=== PATIENT | male | born 1970 | race Caucasian/White ===

== ENCOUNTER 2016-09-20 22:27 | Observation (INO) | payer SELFPAY ==
[2016-09-20] VITALS (8 sets, daily range): BP systolic 102–158; BP diastolic 65–92; PULSE 85–104; RESP 16–18; TEMP 100; O2SAT 93–97
[~2016-09-20] VITALS: Ht 180.3 cm; Wt 116.8 kg
[~2016-09-20 22:27] MED LIST: COLC1TAB7 PO; INDO50CA PO; LISI-360 PO
[2016-09-20] MEDS ORDERED: ASPIRIN 81 MG CHEW TAB PO ONE (22:45)
[2016-09-20] MEDS ORDERED: SODIUM CHLORIDE 0.9% FLUSH 5 ML FLUSH IVF PRN (22:45)
--- NOTE | 2016-09-20 22:46 | PD ---
HPI Chief Complaint: chest pain Time Seen by Provider: 22:41 Travel History International Travel<30 days: No Contact w/Intl Traveler<30days: No Traveled to known affect area: No History of Present Illness HPI 46-year-old male presents to the emergency department by private transportation for complaint of 3/10 retrosternal chest pain radiating into the back. Patient denies neck jaw shoulder arm or abdominal pain. Patient states he's had vague discomfort in his chest over the past 2-3 days. Patient states prior to arrival to the emergency department pain was 10 over 10 in intensity. Onset of symptoms approximately 45 minutes prior to arrival to the emergency department. Patient states he had a mild chill or sweat. No nausea vomiting or shortness of breath. Patient has history of hypertension but denies personal history of dyslipidemia diabetes tobaccoism or heart disease. Patient denies family history of premature onset heart disease but does have family history of hypertension. Patient has not been told of any issues with his aorta. Patient denies any personal history family history of clotting disorder and no recent long distance travel protracted bedrest or surgical procedure. Patient reports cough just since arriving to the emergency department. Patient does not report any skin rash lip tongue or throat swelling. Patient does take the Cipro for hypertension. [facility], [facility] Past Medical History Narrative Medical Hypertension negative stress test 2007 gouty arthritis kidney stones with lithotripsy vasectomy mediastinal tumor excision tracheostomy was reversal no tobacco use no family history OR nursing notes reviewed Heart Rhythm Problems: No Cancer: No Cardiac Catheterization: No Cardiovascular Problems: Yes (htn on meds but did not take this am) High Cholesterol: No Congestive Heart Failure: No Diabetes: No Diminished Hearing: No Gout: Yes Genitourinary: Yes (LITHOTRIPSY) Hepatitis: No Hiatal Hernia: No Hypertension: Yes Kidney Stones: Yes Immunizations Current: Yes Myocardial Infarction: No Thyroid Disease: No PNEUMOCCOCAL Vaccine (Year): 2 Past Surgical History Coronary Artery Bypass Graft: No Genitourinary Surgery: Yes (VASECTOMY, BILATERAL ESWL) Gynecologic Surgery: No Pacemaker: No Thoracic Surgery: Yes (TUMOR REMOVED FROM CHEST) Other Surgery: Yes (TRACH AND REVERSAL) Social History Alcohol Use: No Tobacco Use: No Substance Use: No Allergies-Medications (Allergen,Severity, Reaction): Coded Allergies: Contrast Media (Verified Allergy, Severe, Anaphylaxis, 10/16/15) Reported Meds & Prescriptions Reported Meds & Active Scripts Active Colcrys (Colchicine) 0.6 Mg Tab 0.6 Mg PO DIRECTED 1.2 mg PO x 1, then 0.6 mg 1 hour later x 1 Indocin (Indomethacin) 50 Mg Cap 50 Mg PO TID One by mouth every 8 hours; discontinue as soon as relief Lisinopril 10 mg (Lisinopril) 10 Mg Tab 10 Mg PO DAILY Review of Systems Except as stated in HPI: all other systems reviewed are Neg General / Constitutional: Positive: Chills, No: Fever HENT: No: Congestion Cardiovascular: Positive: Chest Pain or Discomfort, No: Syncope Respiratory: Positive: Cough (just since arriving to the ED) Gastrointestinal: No: Nausea, Vomiting, Diarrhea, Abdominal Pain Genitourinary: No: Urgency, Frequency, Dysuria Musculoskeletal: No: Myalgias, Arthralgias Skin: No Rash Neurologic: No: Weakness Psychiatric: No: Anxiety Hematologic/Lymphatic: No: Lymph Node Enlargement Physical Exam Narrative GENERAL: Well-developed well-nourished male in no acute distress no respiratory distress SKIN: Warm and dry. HEAD: Normocephalic. EYES: No scleral icterus. No injection or drainage. NECK: Supple, trachea midline. No JVD or lymphadenopathy. CARDIOVASCULAR: Regular rate and rhythm without murmurs, gallops, or rubs. RESPIRATORY: Breath sounds equal bilaterally. No accessory muscle use. GASTROINTESTINAL: Abdomen soft, non-tender, nondistended. MUSCULOSKELETAL: No cyanosis, or edema. Radial and dorsalis pedis pulses 2+ to palpation bilaterally. BACK: Nontender without obvious deformity. No CVA tenderness. Data Data Last Documented VS Vital Signs Date Time Temp Pulse Resp B/P Pulse Ox O2 Delivery O2 Flow Rate FiO2 09/20/16 23:10 16 09/20/16 22:30 100.0 88 158/92 96 Orders Electrocardiogram (09/20/16 22:41) Ckmb (Isoenzyme) Profile (09/20/16 22:41) Complete Blood Count With Diff (09/20/16 22:41) Comprehensive Metabolic Panel (09/20/16 22:41) Magnesium (Mg) (09/20/16 22:41) Prothrombin Time / Inr (Pt) (09/20/16 22:41) Act Partial Throm Time (Ptt) (09/20/16 22:41) Troponin I (09/20/16 22:41) Lipase (09/20/16 22:41) Chest, Single Ap (09/20/16 22:41) Ecg Monitoring (09/20/16 22:41) Bilateral Bp Monitoring (09/20/16 22:41) Iv Access Insert/Monitor (09/20/16 22:41) Oximetry (09/20/16 22:41) Oxygen Administration (09/20/16 22:41) Aspirin Chew (Aspirin Chew) (09/20/16 22:45) Sodium Chloride 0.9% Flush (Ns Flush) (09/20/16 22:45) Nitroglycerin Sl (Nitrostat Sl) (09/20/16 22:45) Sodium Chlor 0.9% 1000 Ml Inj (Ns 1000 M (09/20/16 22:45) Alcohol (Ethanol) (09/20/16 22:46) CKMB (09/20/16 22:35) CKMB% (09/20/16 22:35) Labs Laboratory Tests Test 09/20/16 22:35 White Blood Count 10.5 TH/MM3 Red Blood Count 5.61 MIL/MM3 Hemoglobin 15.6 GM/DL Hematocrit 47.8 % Mean Corpuscular Volume 85.2 FL Mean Corpuscular Hemoglobin 27.7 PG Mean Corpuscular Hemoglobin 32.6 % Concent Red Cell Distribution Width 13.0 % Platelet Count 231 TH/MM3 Mean Platelet Volume 9.4 FL Neutrophils (%) (Auto) 54.0 % Lymphocytes (%) (Auto) 33.2 % Monocytes (%) (Auto) 9.0 % Eosinophils (%) (Auto) 3.3 % Basophils (%) (Auto) 0.5 % Neutrophils # (Auto) 5.7 TH/MM3 Lymphocytes # (Auto) 3.5 TH/MM3 Monocytes # (Auto) 0.9 TH/MM3 Eosinophils # (Auto) 0.3 TH/MM3 Basophils # (Auto) 0.1 TH/MM3 CBC Comment DIFF FINAL Differential Comment Prothrombin Time 9.9 SEC Prothromb Time International 0.9 RATIO Ratio Activated Partial 26.8 SEC Thromboplast Time Sodium Level 141 MEQ/L Potassium Level 3.9 MEQ/L Chloride Level 104 MEQ/L Carbon Dioxide Level 28.2 MEQ/L Anion Gap 9 MEQ/L Blood Urea Nitrogen 18 MG/DL Creatinine 1.20 MG/DL Estimat Glomerular Filtration 65 ML/MIN Rate Random Glucose 141 MG/DL Calcium Level 8.5 MG/DL Magnesium Level 2.1 MG/DL Total Bilirubin 0.3 MG/DL Aspartate Amino Transf 18 U/L (AST/SGOT) Alanine Aminotransferase 35 U/L (ALT/SGPT) Alkaline Phosphatase 126 U/L Total Creatine Kinase 339 U/L Creatine Kinase MB 1.7 NG/ML Creatine Kinase MB % 0.5 % Troponin I LESS THAN 0.02 NG/ML Total Protein 7.3 GM/DL Albumin 3.6 GM/DL Lipase 103 U/L Ethyl Alcohol Level LESS THAN 3 MG/DL MDM Medical Decision Making Medical Screen Exam Complete: Yes Emergency Medical Condition: Yes Medical Record Reviewed: Yes Interpretation(s) EKG normal sinus rhythm rate [address] elevation or injury pattern change artifact is present in lead 3 troponin I: less than 0.02, not elevated; ck: 339, elevated but ckmb: 0.5% not elevated Last Impressions Chest X-Ray 09/20/16 2241 Signed Impressions: Service Date/Time: Tuesday, September 20, 2016 22:48 - CONCLUSION: No evidence of acute cardiopulmonary disease. Bridger Copeland MD CBC & BMP Diagram 09/20/16 22:35 Differential Diagnosis Chest pain, ACS, OR, atypical chest pain, esophageal spasm, PE, biliary colic, peptic ulcer disease, pancreatitis, viral syndrome, pneumonia Narrative Course Patient placed on monitor and storage bin tender IV access obtained specimens collected and sent for resulting patient administered aspirin and ordered for sublingual nitroglycerin patient denies medication use for erectile dysfunction At 11:35 PM after 2 sublingual nitroglycerin tablets 0.4 mg discomfort/pain is 0 /10 in intensity. chest pain CAD risks: male, age 46, hypertension; no DM, no dyslipidemia, no tobacco, no FH CAD. Plan for obs to [facility] per protocol Physician Communication Physician Communication discussed with Dr Arndt for [facility] protocol Diagnosis Primary Impression: Chest pain Qualified Code: R07.2 - Precordial pain Admitting Information Admitting Physician Requests: Viridiana Anne MD Sep 20, 2016 22:46
[2016-09-20] MEDS: SODIUM CHLOR 0.9% 1000 ML INJ 1,000 ML IV SCH (22:53)
[2016-09-20] MEDS: NITROGLYCERIN 0.4 MG SL 25 TABS/BTL SL SCH ×2 (22:55→23:09)
--- NOTE | 2016-09-20 22:59 | RADHPO ---
EXAM DATE/TIME: 09/20/2016 22:48 [facility] COMPARISON: CHEST PA & LAT, January 01, 2015, 9:01. INDICATIONS : Chest pains MEDICAL HISTORY : Hyperparathyroidism. SURGICAL HISTORY : None. ENCOUNTER: Initial ACUITY: 1 day PAIN SCORE: 5/10 LOCATION: Left chest FINDINGS: A single view of the chest demonstrates the lungs to be symmetrically aerated without evidence of mas s, infiltrate or effusion. The cardiomediastinal contours are unremarkable. Osseous structures are intact. CONCLUSION: No evidence of acute cardiopulmonary disease. Bridger Copeland MD on September 20, 2016 at 22:56 Board Certified Radiologist. This report was verified electronically.
[2016-09-20 23:12] LABS: AUTOMATED NEUTROPHIL # 5.7 TH/MM3 (1.8-7.7); BASOPHIL # 0.1 TH/MM3 (0-0.2); BASOPHIL % 0.5 % (0.0-2.0); EOSINOPHIL # 0.3 TH/MM3 (0-0.4); EOSINOPHIL % 3.3 % (0.0-4.0); HEMATOCRIT 47.8 % (39.0-51.0); HEMO FLAGS DIFF FINAL; LYMPH % 33.2 % (9.0-44.0); LYMPHOCYTE # 3.5 TH/MM3 (1.0-4.8); MEAN CELL VOLUME 85.2 FL (80.0-100.0); MEAN CORPUSCULAR HEMOGLOBIN 27.7 PG (27.0-34.0); MEAN CORPUSCULAR HGB CONC 32.6 % (32.0-36.0); PLATELET COUNT 231 TH/MM3 (150-450); RED BLOOD COUNT 5.61 MIL/MM3 (4.50-5.90); WHITE BLOOD COUNT 10.5 TH/MM3 (4.0-11.0)
[2016-09-20 23:20] LABS: CHLORIDE 104 MEQ/L (98-107); POTASSIUM 3.9 MEQ/L (3.5-5.1); SODIUM (NA) 141 MEQ/L (136-145)
[2016-09-20 23:24] LABS: ANION GAP 9 MEQ/L (5-15); BICARBONATE 28.2 MEQ/L (21.0-32.0); BLOOD UREA NITROGEN 18 MG/DL (7-18); MAGNESIUM 2.1 MG/DL (1.5-2.5)
[2016-09-20 23:25] LABS: APTT (PATIENT) 26.8 SEC (24.3-30.1); INTERNATIONAL NORMALIZED RATIO 0.9 RATIO; PROTHROMBIN TIME - PATIENT 9.9 SEC (9.8-11.6)
[2016-09-20 23:27] LABS: ALT (GPT) 35 U/L (12-78); AST (GOT) 18 U/L (15-37); GLOMERULAR FILTRATION RATE 65 ML/MIN (>89)
[2016-09-20 23:28] LABS: TOTAL BILIRUBIN ADULT 0.3 MG/DL (0.2-1.0)
[2016-09-20 23:29] LABS: CREATINE KINASE 339 U/L (39-308)
[2016-09-20 23:30] LABS: ALKALINE PHOSPHATASE 126 U/L (45-117)
[2016-09-20 23:42] LABS: CKMB 1.7 NG/ML (0.5-3.6)
[2016-09-21] VITALS (9 sets, daily range): BP systolic 112–142; BP diastolic 63–102; PULSE 73–85; RESP 16–20; TEMP 95.3–96.2; O2SAT 93–99
[2016-09-21] MEDS ORDERED: SODIUM CHLORIDE 0.9% FLUSH 5 ML FLUSH IVF PRN ×2 (00:30)
[2016-09-21] MEDS ORDERED: LISI10TA3 PO (01:08)
[2016-09-21 02:39] LABS: CREATINE KINASE 281 U/L (39-308)
[2016-09-21 02:51] LABS: CKMB 1.8 NG/ML (0.5-3.6)
[2016-09-21 05:00] LABS: CREATINE KINASE 260 U/L (39-308)
[2016-09-21 05:12] LABS: CKMB 1.6 NG/ML (0.5-3.6)
[2016-09-21] MEDS ORDERED: NITROGLYCERIN 0.4 MG SL 25 TABS/BTL SL PRN (08:45)
[2016-09-21] MEDS ORDERED: ACETAMINOPHEN/HYDROcodone 325 MG/7.5 MG TAB PO PRN (08:45)
[2016-09-21] MEDS: SODIUM CHLOR 0.9% 1000 ML INJ 1,000 ML IV SCH (08:45)
[2016-09-21] MEDS ORDERED: MORPHINE SULFATE 4 MG/ML INJ IV PRN (08:45)
[2016-09-21] MEDS ORDERED: ONDANSETRON HCL 4 MG/2 ML VIAL IV PRN (08:45)
[2016-09-21] MEDS ORDERED: ACETAMINOPHEN 500 MG CPLT PO PRN (08:45)
--- NOTE | 2016-09-21 08:49 | HHI.HP ---
cc: Eda Fishman MD [facility] Service [facility] Primary Care Physician Eda Fishman MD Admission Diagnosis chest pain Diagnoses: (1) Chest pain Diagnosis: Principal Chief Complaint: chest pain Travel History International Travel<30 Days: No Contact w/Intl Traveler <30 Da: No Traveled to Known Affected Are: No History of Present Illness 46-year-old male with history of hypertension, gout, kidney stones, and previous mediastinal tumors presents with complaint of chest pain. Patient admits to sharp retrosternal chest pain which started at 10 PM last night and radiated to the back and both sides of the anterior chest. Pain occurred after taking 2 potassium pills and drinking a glass of wine. He states pain lasted until he came here which was about 15 minutes and was constant during that time. He states the pain was already subsiding prior to receiving 2 nitroglycerin in the ED, and he denies immediate relief with this medication. The patient does state for the past week he has had left-sided chest discomfort a couple of episodes per day lasting minutes at a time and describes the pain as "shooting". He additionally admits to sharp "burning" epigastric pain for the past month. States it would occur spontaneously as well as with drinking or eating. Patient does get heartburn but only occasionally. He states he has had shortness of breath over the past week. He states he had mild dizziness this past week which has resolved. 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 He states he had diaphoresis last night which lasted only for a second, but he denies any numbness or tingling in the upper extremities. He admits to some left-sided neck pain but denies any pain in the jaws or arms and states the pain may have been from the way he was positioned. He denies any fevers, cold or cough symptoms recently; states he has a sore throat this morning which may be due to not drinking anything while here. Denies any chest pain or abdominal pain currently. Denies any nausea, vomiting, diarrhea, or constipation. Patient admits to swelling in his ankles but attributes it to work and also states he gets cramping in his calf muscles for which he is taking OTC potassium. He denies any history of DVT or pulmonary embolus, recent sedentary travel, leg immobilization, recent hospitalization, trauma or surgery in the last 12 weeks, or hemoptysis. May have had a stress test in 2007 although patient is unsure. He denies any history of diabetes mellitus, HLD, or CAD. Review of Systems Constitutional: COMPLAINS OF: Diaphoretic episodes, Dizziness (this past week; now resolved), DENIES: Fever Eyes: DENIES: Blurred vision Ears, nose, mouth, throat: COMPLAINS OF: Throat pain, DENIES: Ear Pain, Running Nose Respiratory: COMPLAINS OF: Shortness of breath, DENIES: Cough Cardiovascular: COMPLAINS OF: Chest pain, Lower Extremity Edema (ankles) Gastrointestinal: COMPLAINS OF: Abdominal pain, DENIES: Constipation, Diarrhea Genitourinary: DENIES: Dysuria Musculoskeletal: COMPLAINS OF: Back pain, Neck pain Integumentary: DENIES: Rash Neurologic: DENIES: Headache, Paresthesias Past Family Social History Past Medical History Hypertension Gout Kidney stones Left knee pain L-spine CT 08/17/15 with spondylolysis L5 bilaterally with grade 1 anterolisthesis; neural foramina compromise right L5-S1 impinging on exiting nerve roots on right due to asymmetrical bulging disc and small area of disc protrusion. Patient states he had back pain for 3 months at that time but his back is fine now. 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 Apparently had a tracheostomy related to this. Past Surgical History Lithotripsy Vasectomy Tracheostomy Reported Medications Lisinopril 10 Mg Tab 10 Mg PO DAILY Allergies: Coded Allergies: Contrast Media (Verified Allergy, Severe, Anaphylaxis, 10/16/15) Family History Mother: Hypertension. No history of CAD. Patient does not have any biological siblings. He does not know his father's history. Social History Patient denies any history of cigarette smoking. Patient drinks a glass of wine once in a while. Denies any history of illicit drug use. Physical Exam Vital Signs Vital Signs Date Time Temp Pulse Resp B/P Pulse Ox O2 Delivery O2 Flow Rate FiO2 09/21/16 04:15 96.2 73 20 128/89 99 09/21/16 04:00 96.2 81 20 139/90 96 09/21/16 02:27 78 09/21/16 01:39 98 Nasal Cannula 2.00 09/21/16 01:30 96.2 73 20 128/89 99 09/21/16 01:20 73 16 112/65 97 Nasal Cannula 2 09/21/16 00:35 99 Nasal Cannula 2 09/21/16 00:25 82 16 112/63 97 Nasal Cannula 2 09/20/16 23:55 86 16 115/76 97 Nasal Cannula 2 09/20/16 23:35 85 18 102/65 97 106/67 09/20/16 23:30 16 96 Room Air 09/20/16 23:30 85 16 106/67 97 Room Air 09/20/16 23:30 96 Room Air 09/20/16 23:25 87 16 120/65 95 Room Air 09/20/16 23:15 90 18 119/72 93 Room Air 09/20/16 23:10 16 09/20/16 23:05 100 18 131/72 95 Room Air 09/20/16 22:55 104 18 136/88 95 Room Air 09/20/16 22:30 104 18 96 09/20/16 22:30 100.0 88 16 158/92 96 Physical Exam GENERAL: This is a well-nourished, well-developed patient, in no apparent distress. SKIN: No rashes, ecchymoses or lesions. Warm and dry. HEAD: Atraumatic. Normocephalic. EYES: No scleral icterus. No injection or drainage. ENT: MMM. NECK: Trachea midline. No tenderness over B/L paracervical muscles. No obvious carotid bruits bilaterally. CARDIOVASCULAR: Regular rate and rhythm without murmurs, gallops, or rubs. RESPIRATORY: Clear to auscultation. Breath sounds equal bilaterally. No wheezes , rales, or rhonchi. GASTROINTESTINAL: Abdomen soft, non-tender, nondistended. No hepatomegaly, or palpable masses. No guarding. Negative Dominguez's test. MUSCULOSKELETAL: Tender over bilateral calves, but patient states this is chronic. No lower extremity edema bilaterally. 2+ DP pulses bilaterally. NEUROLOGICAL: Awake and alert. Motor grossly within normal limits. Normal speech. Laboratory Laboratory Tests Test 09/20/16 09/21/16 09/21/16 22:35 02:00 04:30 White Blood Count 10.5 Red Blood Count 5.61 Hemoglobin 15.6 Hematocrit 47.8 Mean Corpuscular Volume 85.2 Mean Corpuscular Hemoglobin 27.7 Mean Corpuscular Hemoglobin 32.6 Concent Red Cell Distribution Width 13.0 Platelet Count 231 Mean Platelet Volume 9.4 Neutrophils (%) (Auto) 54.0 Lymphocytes (%) (Auto) 33.2 Monocytes (%) (Auto) 9.0 Eosinophils (%) (Auto) 3.3 Basophils (%) (Auto) 0.5 Neutrophils # (Auto) 5.7 Lymphocytes # (Auto) 3.5 Monocytes # (Auto) 0.9 Eosinophils # (Auto) 0.3 Basophils # (Auto) 0.1 CBC Comment DIFF FINAL Differential Comment Prothrombin Time 9.9 Prothromb Time International 0.9 Ratio Activated Partial 26.8 Thromboplast Time Sodium Level 141 Potassium Level 3.9 Chloride Level 104 Carbon Dioxide Level 28.2 Anion Gap 9 Blood Urea Nitrogen 18 Creatinine 1.20 Estimat Glomerular Filtration 65 Rate Random Glucose 141 Calcium Level 8.5 Magnesium Level 2.1 Total Bilirubin 0.3 Aspartate Amino Transf 18 (AST/SGOT) Alanine Aminotransferase 35 (ALT/SGPT) Alkaline Phosphatase 126 Total Creatine Kinase 339 281 260 Creatine Kinase MB 1.7 1.8 1.6 Creatine Kinase MB % 0.5 Troponin I LESS THAN 0.02 LESS THAN 0.02 LESS THAN 0.02 Total Protein 7.3 Albumin 3.6 Lipase 103 Ethyl Alcohol Level LESS THAN 3 Result Diagram: 09/20/16223409/20/162234 Imaging Last Impressions Chest X-Ray 09/20/162240 Signed Impressions: Service Date/Time: Tuesday, September 20, 2016 22:48 - CONCLUSION: No evidence of acute cardiopulmonary disease. Bridger Copeland MD Assessment and Plan Assessment and Plan 46-year-old male with: Chest pain: Sharp retrosternal pain radiating to the back and both sides of anterior chest lasting 15 minutes last night, but patient has had additional episodes of left-sided chest discomfort and shortness of breath this past week. Pain currently resolved. Troponin 3 less than 0.02. CK-MB normal 3. Chest x-ray personally reviewed without acute abnormality. EKGs 3 personally interpreted with NSR and no ischemic abnormalities. EKG #1 has some isolated T- wave inversion in lead 3 but this may be abnormal due to the altered baseline. -Patient received 162 mg of aspirin at 2252 hours. -Nitro/Salix/morphine prn pain -Although patient has had previous back issues he currently states his back is fine. He c/o of some left knee issues, but the treadmill test was explained to the patient and he feels he can walk successfully on it without issue. ETT will be ordered. Nurse to wrap patient's left knee with CAMPOS prior to testing. Patient was informed if he is unable to complete the test we will have to do alternate testing (nuclear). ETT ordered. Epigastric pain: x 1 month. Describes as burning. No abdominal pain on exam. CBC unremarkable. Lipase is normal. Alkaline phosphatase mildly elevated, but AST and ALT normal. Patient has a history of occasional heartburn. Patient does drink wine occasionally and had some last night. Pain is likely GERD related. -Protonix 40 po ordered now. -Maalox prn -Outpatient follow up with GI HTN: Continue home Lisinopril Leg cramps: Patient has been taking jwup-avr-paeogrd potassium supplementation due to leg cramps. He does have bilateral calf pain on exam but there is no swelling evident and the patient's Wells score is -1 with a PERC score of 0 making DVT unlikely. K+ is normal. -Patient advised to discuss any [id number] supplementation with Dr. Fishman his PCP. -He is advised he can obtain adequate potassium through regular diet. -Hydration advised. DVT prophylaxis: early ambulation ETT was reviewed by Dr. Dickey [facility] wheel aligner who states it is normal. When I went back to speak with the patient he stated he started to develop mild epigastric pain again, but there is no pain on exam and he states he may just be hungry. Discharge disposition: Home in fair condition. Activity: Regular Diet: Patient advised against using alcohol as it causes GERD. Heart healthy diet advised. Medications: Protonix 20 mg daily. Patient advised he can take Tums, Maalox, or Pepcid Complete OTC to alleviate acute symptoms. Follow up: PCP Dr. Eda Fishman; GI. Discussed Condition With patient Problem Qualifiers (1) Chest pain: Qualified Code: R07.2 - Precordial pain Bree Castellanos Sep 21, 2016 08:48
[2016-09-21] MEDS ORDERED: SODIUM CHLORIDE 0.9% FLUSH 5 ML FLUSH IVF SCH ×2 (09:00)
[2016-09-21] MEDS ORDERED: PANTOPRAZOLE SOD 40 MG DELAYED RELEASE TAB PO SCH (09:00)
[2016-09-21] MEDS ORDERED: LISINOPRIL 10 MG TAB PO SCH (09:00)
--- NOTE | 2016-09-21 09:33 | EKG ---
Date Performed: 09/20/2016 Time Performed: 22:33:14 PTAGE: 46 years EKG: Sinus rhythm . Normal ECG PREVIOUS TRACING : 02/10/2013 19.10 No significant change from previous tracing noted. DOCTOR: Dg Schmitt Interpretating Date/Time 09/21/2016 09:31:49
[2016-09-21] MEDS ORDERED: PANT20 PO (11:23)
--- NOTE | 2016-09-21 11:25 | HHI.DCPOC ---
Discharge Care Plan Diagnosis: (1) Chest pain (2) Epigastric pain (3) Leg cramps Your Health Problems Are: Chest Pain Goals to Promote Your Health * To prevent worsening of your condition and complications * To maintain your health at the optimal level Directions to Meet Your Goals Take your medications as prescribed Follow your dietary instruction Follow activity as directed Keep your appointments as scheduled Take your immunizations and boosters as scheduled If your symptoms worsen call your PCP, if no PCP go to Urgent Care Center or Emergency Room Smoking is Dangerous to Your Health. Avoid second hand smoke Call the 24-hour hour crisis hotline for domestic abuse at Bree Castellanos Sep 21, 2016 11:24
[2016-09-21] MEDS ORDERED: ALUMINUM/MAGNESIUM/SIMETH 30 ML CUP PO PRN (11:30)
--- NOTE | 2016-09-21 13:43 | TR ---
Date Performed: 09/21/2016 Time Performed: 09:03:25 DOCTOR: Golden Dickey DRUG LIST: CLINICAL HISTORY: CHEST PAIN REASON FOR TEST: REASON FOR ENDING: OBSERVATION: CONCLUSION: Patient tolerated MARGARITA protocol with Total Exercise Time=9:05 Maximum PN=198 % Max HR Achieved=93.0% Maximum ZC=256/80. Testing stopped secondary to goal achieved and normal exercise f atigue. Patient experienced tingling in both hands up to mid forearms during early exercise which res olved; not present during peak exercise. No chest pain. HR and BP appropriate response to exercise an d recovered appropriately. No arrhythmias noted. COMMENTS: Patient exercised using the Margarita protocol. No electrocardiographic changes were seen to suggest ischemia. Hemodynamic response to exercise was normal. No significant arrhythmia was prese nt.
--- NOTE | 2016-09-22 09:14 | EKG ---
Date Performed: 09/21/2016 Time Performed: 01:31:24 PTAGE: 46 years EKG: Sinus rhythm Normal ECG PREVIOUS TRACING : 02/10/2013 19.10 Since previous tracing, no significant change noted DOCTOR: Golden Dickey Interpretating Date/Time 09/22/2016 09:13:20
--- NOTE | 2016-09-22 09:16 | EKG ---
Date Performed: 09/21/2016 Time Performed: 04:40:10 PTAGE: 46 years EKG: Sinus rhythm Normal ECG PREVIOUS TRACING : 09/21/2016 01.31 Since previous tracing, no significant change noted DOCTOR: Golden Dickey Interpretating Date/Time 09/22/2016 09:14:22
--- NOTE | 2016-09-28 13:10 | EKG ---
Date Performed: 09/21/2016 Time Performed: 04:40:10 PTAGE: 46 years EKG: Sinus rhythm Normal ECG PREVIOUS TRACING : 09/21/2016 01.31 Since previous tracing, no significant change noted DOCTOR: Golden Dickey Interpretating Date/Time 09/28/2016 13:09:27
--- NOTE | 2016-09-28 13:10 | EKG ---
Date Performed: 09/21/2016 Time Performed: 01:31:24 PTAGE: 46 years EKG: Sinus rhythm Normal ECG PREVIOUS TRACING : 02/10/2013 19.10 Since previous tracing, no significant change noted DOCTOR: Golden Dickey Interpretating Date/Time 09/28/2016 13:09:36
[2016-10-30] MEDS ORDERED: LISI10TA3 PO (15:23)
[2017-01-05] MEDS ORDERED: LISI10TA3 PO (14:23)
[2017-01-12] MEDS ORDERED: LISI10TA3 PO (11:20)
== END 2016-09-21 12:35 | disposition home or self-care (01) ==
LOC: PHED 22:27 → PHEDA 09-21 00:26 → PH3A 09-21 01:25
PROVIDERS: ADMIT Hospitalist; ATTEND Hospitalist
DX: R07.2 Precordial pain (principal); R68.83 Chills (without fever); I10 Essential (primary) hypertension; R05 Cough; M10.9 Gout, unspecified; R61 Generalized hyperhidrosis; M54.2 Cervicalgia; R06.02 Shortness of breath; R25.2 Cramp and spasm
CPT/HCPCS: 71010; 80053; 80320; 82550; 82552; 83690; 83735; 84484; 85025; 85610; 85730; 93005; 93017; 96360; 96361; 99285; G0378; J7030

== ENCOUNTER 2016-10-08 19:29 | Emergency (ER) | payer SELFPAY ==
[~2016-10-08] VITALS: Ht 180.3 cm; Wt 118.0 kg
[~2016-10-08 19:29] MED LIST changes: -COLC1TAB7 PO; -INDO50CA PO; -LISI-360 PO; +LISI10TA3 PO; +PANT20 PO
[2016-10-08 19:43] VITALS: BP 133/87; PULSE 87; RESP 20; TEMP 98.7; O2SAT 97
[2016-10-08] MEDS ORDERED: ONDANSETRON ODT 4 MG TAB PO ONE (20:30)
[2016-10-08] MEDS ORDERED: KETOROLAC TROMETHAMINE 60 MG/2 ML (IM) VIAL IM ONE (20:30)
--- NOTE | 2016-10-08 21:14 | PD ---
HPI Chief Complaint: Injury Time Seen by Provider: 20:18 Travel History International Travel<30 days: No Contact w/Intl Traveler<30days: No Traveled to known affect area: No History of Present Illness HPI Patient comes in complaining of left leg pain going from his knee to his ankle. Patient states he has chronic issue with his knee, ankle, and low back but has not seen a primary care doctor currently for this. Patient states he has a history of gout but this does not feel similar. Patient states when he woke this morning he felt his left lower extremity was more swollen than normal. Patient reports that about a week ago he misstepped on a ladder, but he denies any direct trauma to his left lower extremity. Denies any numbness or tingling. Patient has pain is aching burning sensation that is worse with palpation and walking. PFSH Past Medical History Asthma: No Blood Disorders: No Heart Rhythm Problems: No Cancer: No Cardiac Catheterization: No Cardiovascular Problems: Yes High Cholesterol: No Chest Pain: Yes Congestive Heart Failure: No COPD: No Diabetes: No Diminished Hearing: No Endocrine: No Gout: Yes Genitourinary: Yes (LITHOTRIPSY) Hepatitis: No Hiatal Hernia: No Hypertension: Yes Immune Disorder: No Kidney Stones: Yes Medical other: Yes ( SARCARDOSIS ) Musculoskeletal: Yes (MUSCLE NIGHT CRAMPS) Neurologic: Yes Psychiatric: No Reproductive: No Respiratory: Yes (SNORING) Immunizations Current: Yes Myocardial Infarction: No Sleep Apnea: No Thyroid Disease: No Tetanus Vaccination: < 5 Years Influenza Vaccination: No PNEUMOCCOCAL Vaccine (Year): 2 Past Surgical History Coronary Artery Bypass Graft: No Genitourinary Surgery: Yes (VASECTOMY, BILATERAL ESWL) Gynecologic Surgery: No Pacemaker: No Thoracic Surgery: Yes (TUMOR REMOVED FROM CHEST) Other Surgery: Yes (TRACH AND REVERSAL) Social History Alcohol Use: Yes (OCC WINE) Tobacco Use: No Substance Use: No Allergies-Medications (Allergen,Severity, Reaction): Coded Allergies: Contrast Media (Verified Allergy, Severe, Anaphylaxis, 10/08/16) Reported Meds & Prescriptions Reported Meds & Active Scripts Active Indomethacin 50 Mg Cap 50 Mg PO Q8HR PRN Take with food, milk, or antacids to decrease stomach adverse effects. Protonix (Pantoprazole Sodium) 20 Mg Tab 20 Mg PO DAILY Reported Lisinopril 10 Mg Tab 10 Mg PO DAILY Review of Systems Except as stated in HPI: all other systems reviewed are Neg Physical Exam Narrative GENERAL: Well-developed, overly nourished, in no acute distress, and non-ill appearing. SKIN: Warm and dry. HEAD: Atraumatic. Normocephalic. EYES: Pupils equal and round. EOMI. No scleral icterus. No injection or drainage. ENT: No nasal bleeding or discharge. Mucous membranes pink and moist. NECK: Trachea midline. Supple. No nuclear rigidity. CARDIOVASCULAR: Dorsal pulses 2+ intact bilaterally. Capillary refill is 2 seconds. Trace pedal edema noted left lower extremity compared to right. RESPIRATORY: No accessory muscle use. No respiratory distress. MUSCULOSKELETAL: No obvious deformities. No clubbing. No cyanosis. No edema. Decreased range of motion of left leg secondary to pain. Patient reports tenderness to palpation from his left ankle to his left knee. Positive Homans sign on left. Knee: Negative patellar apprehension, varus and valgus maneuvers , anterior draw test, and Mayco test. Pulses equal BL distal to injury. Capillary refill less than 2 seconds distal to injury and equal BL. FROM distal to injury and equal BL. Strength distal to injury equal BL. NV intact distal to injury. Dorsal pulses equal BL. Ankle: Neagative anterior draw and Barnett test. Negative Fredy's sign. No laxity noted with passive inversion and eversion of BL ankles. Negative squeeze test. Pulses equal BL distal to injury. Capillary refill less than 2 seconds distal to injury and equal BL. Sensation equal BL 1st web space. FROM of toes distal to injury and equal BL. NV intact distal to injury and equal BL. Dorsal pulses equal BL. NEUROLOGICAL: Awake and alert. No obvious cranial nerve deficits. Motor grossly within normal limits. Normal speech. PSYCHIATRIC: Appropriate mood and affect; insight and judgment normal. Data Data Last Documented VS Vital Signs Date Time Temp Pulse Resp B/P Pulse Ox O2 Delivery O2 Flow Rate FiO2 10/08/16 19:53 16 98 Room Air 10/08/16 19:43 98.7 87 133/87 Orders Us Leg Venous Doppler (10/08/16 ) Ondansetron Odt (Zofran Odt) (10/08/16 20:30) Ketorolac Inj (Toradol Inj) (10/08/16 20:30) Crutches (10/08/16 23:14) [facility] Medical Decision Making Medical Screen Exam Complete: Yes Emergency Medical Condition: Yes Differential Diagnosis Acute on chronic pain, gout, DVT, other Narrative Course There is no clinical evidence for fracture. There is no clinical evidence to suspect bony injury by exam. No obvious ligamental injury or internal derangement is noted at this time. The distal extremity appears neurovascularly intact, without evidence of neurovascular injury nor compartment syndrome. Tendon exam also was intact. The patient was discharged on pain medication and given warnings for vascular compromise. The patient is to follow up with Orthopedics. The patient agrees with plan. Patient in no obvious distress upon re-evaluation. All pertinent Radiology result(s) discussed with patient/family. Patient was given a shot of Toradol for pain that improved his symptoms. Patient was asked if they wanted to speak to my attending, which the patient did not wish to do at this time. Any questions/concerns in reference to patient diagnosis/condition discussed and clarified prior to patient's discharge. Reinforced sheer importance of close follow up with patient's primary physician or primary care clinic. Instructed patient to return to ED immediately, if symptoms return/worsen. Pt showed understanding of above instructions. Further instructions and recommendations were detailed in discharge paperwork. Pt ambulated without difficulty out of ED at discharge with crutches. Diagnosis Primary Impression: Pain in left lower leg Patient Instructions: Crutch Instructions (ED), General Instructions, Leg Pain (ED) Additional Instructions: Follow-up with your primary care physician and/or orthopedics in 1-3 days for reevaluation. Take all medication as prescribed. Apply ice to affected area 20 minutes per hour as needed for pain. Return to the emergency department if symptoms get worse. Med/Other Pt SpecificInfo: Prescription(s) given Scripts Indomethacin 50 Mg Cap50 Mg PO Q8HR PRN (PAIN SCALE 1 TO 10) #15 CAP Ref 0 Take with food, milk, or antacids to decrease stomach adverse effects. Prov:Viridiana Phillips MD 10/08/16 Disposition: 01 DISCHARGE HOME Condition: Stable Yossi Barragan Oct 08, 2016 21:14
--- NOTE | 2016-10-08 23:12 | RADHPO ---
EXAM DATE/TIME: 10/08/2016 22:17 [facility] COMPARISON: No previous studies available for comparison. INDICATIONS : Left leg pain and swelling. MEDICAL HISTORY : Hypertension. Renal calculi. Neck pain.Gout. Sarcoidosis. SURGICAL HISTORY : Vascectomy. Lithotripsy. Tumor removed from chest. ENCOUNTER: Initial ACUITY: 1 day PAIN SCORE: 7/10 LOCATION: Left leg. TECHNIQUE: Venous ultrasound of the leg was performed from the inguinal ligament to the proximal calf. Real-faviola e, color Doppler and spectral tracing, compression and augmentation techniques were used. FINDINGS: There is normal compressibility of the deep venous system from the inguinal region to the proximal ca lf. No echogenic clot is seen in the lumen of the common femoral, femoral, popliteal, and posterior tibial veins. There is a normal response of the venous system to proximal and distal augmentation an d respiration. CONCLUSION: 1. No evidence of deep venous thrombosis. Golden George MD on October 08, 2016 at 23:10 Board Certified Radiologist. This report was verified electronically.
[2016-10-08] MEDS ORDERED: INDO50CA PO (23:14)
[2016-10-30] MEDS ORDERED: LISI10TA3 PO (15:23)
[2017-01-05] MEDS ORDERED: LISI10TA3 PO (14:23)
[2017-01-12] MEDS ORDERED: LISI10TA3 PO (11:20)
== END 2016-10-08 23:30 | disposition home or self-care (01) ==
LOC: PHED 19:29 → PHEFT 23:30
DX: M79.604 Pain in right leg (principal); I10 Essential (primary) hypertension; Z87.442 Personal history of urinary calculi; W11.XXXA Fall on and from ladder, initial encounter
CPT/HCPCS: 93971; 96372; 99283; E0113; J1885

== ENCOUNTER 2017-03-04 09:22 | Emergency (ER) | payer SELFPAY ==
[~2017-03-04] VITALS: Ht 180.3 cm; Wt 123.0 kg
[~2017-03-04 09:22] MED LIST changes: +INDO50CA PO; -PANT20 PO
[2017-03-04 09:30] VITALS: BP 146/89; PULSE 83; RESP 16; TEMP 97.7; O2SAT 99
[2017-03-04] MEDS ORDERED: SODIUM CHLOR 0.9% 1000 ML INJ 1,000 ML IV ONE ×2 (09:42→09:45)
[2017-03-04] MEDS ORDERED: ALUMINUM/MAGNESIUM/SIMETH 30 ML CUP PO ONE (09:45)
[2017-03-04] MEDS ORDERED: SODIUM CHLORIDE 0.9% FLUSH 10 ML FLUSH IVF PRN (09:45)
[2017-03-04] MEDS ORDERED: ONDANSETRON HCL 4 MG/2 ML VIAL IVP ONE (09:45)
[2017-03-04] MEDS ORDERED: MECLIZINE HCL 25 MG TAB PO ONE (09:45)
[2017-03-04] MEDS ORDERED: LIDOCAINE VISCOUS 2% SOLN 15 ML UDC PO ONE (09:45)
[2017-03-04 10:01] VITALS: RESP 16; O2SAT 96
[2017-03-04 10:07] LABS: BASOPHIL % 0.4 % (0.0-2.0); EOSINOPHIL # 0.2 TH/MM3 (0-0.4); EOSINOPHIL % 2.2 % (0.0-4.0); HEMATOCRIT 44.9 % (39.0-51.0); HEMO FLAGS DIFF FINAL; LYMPHOCYTE # 4.4 TH/MM3 (1.0-4.8); MEAN CELL VOLUME 85.2 FL (80.0-100.0); MEAN CORPUSCULAR HGB CONC 32.9 % (32.0-36.0); NEUT % 47.4 % (16.0-70.0); PLATELET COUNT 186 TH/MM3 (150-450); RED BLOOD COUNT 5.27 MIL/MM3 (4.50-5.90); RED CELL DISTRIBUTION WIDTH 12.3 % (11.6-17.2); WHITE BLOOD COUNT 10.3 TH/MM3 (4.0-11.0)
[2017-03-04 10:14] VITALS: BP_SYST 148; BP_SYST 150; BP_DIAS 85; BP_DIAS 96; RESP 18
[2017-03-04 10:16] LABS: CHLORIDE 106 MEQ/L (98-107); SODIUM (NA) 142 MEQ/L (136-145)
[2017-03-04 10:18] LABS: ANION GAP 9 MEQ/L (5-15); BICARBONATE 26.8 MEQ/L (21.0-32.0)
[2017-03-04 10:21] LABS: GLOMERULAR FILTRATION RATE 71 ML/MIN (>89)
[2017-03-04 10:23] LABS: BLOOD UREA NITROGEN 14 MG/DL (7-18)
--- NOTE | 2017-03-04 10:39 | PD ---
HPI Chief Complaint: Chest Pain Time Seen by Provider: 09:25 Travel History International Travel<30 days: No Contact w/Intl Traveler<30days: No Traveled to known affect area: No History of Present Illness HPI This is a 46-year-old male who arrives to the ER complaining of heaviness in the right ear. He describes a dizziness sensation as if the room is spinning around him. He's felt this way for about 1 day. He complains of epigastric pain which she felt yesterday however he essentially none today. The onset of the epigastric pain occurred while he was shopping in a grocery store pushing a cart. He states he's had similar pains in the past which were treated with Nexium. He reports a feeling somewhat lightheaded upon standing in addition to cold sweats and pallor. He has no shortness of breath. He wonders if he may be suffering from food poisoning. With regard to the right ear pain there is no otalgia, tinnitus or otorrhea. It's mainly a sensation of ear heaviness only. The notes the patient seems to veer to the left while walking. He' s had no falls. About 6 months ago he was seen and evaluated here for chest pain and the workup was unremarkable. Patient was asked if he has tried any new medication or different medication and states no. He states there has been no change in his baseline health status that might account for his symptoms. PFSH Past Medical History Hx Anticoagulant Therapy: No Asthma: No Blood Disorders: No Heart Rhythm Problems: No Cancer: No Cardiac Catheterization: No Cardiovascular Problems: Yes (HTN) High Cholesterol: No Chest Pain: Yes Congestive Heart Failure: No COPD: No Diabetes: No Diminished Hearing: No Endocrine: No Gastrointestinal Disorders: No Gout: Yes Genitourinary: Yes (LITHOTRIPSY) Hepatitis: No Hiatal Hernia: No Heparin Induced Thrombocytopen: No Hypertension: Yes Immune Disorder: No Implanted Vascular Access Dvce: No Kidney Stones: Yes Medical other: Yes ( SARCARDOSIS ) Musculoskeletal: Yes (MUSCLE NIGHT CRAMPS) Neurologic: Yes Psychiatric: No Reproductive: No Respiratory: Yes (SNORING) Immunizations Current: Yes Myocardial Infarction: No Sleep Apnea: No Thyroid Disease: No Tetanus Vaccination: < 5 Years PNEUMOCCOCAL Vaccine (Year): 2 Past Surgical History Coronary Artery Bypass Graft: No Genitourinary Surgery: Yes (VASECTOMY, BILATERAL ESWL) Gynecologic Surgery: No Pacemaker: No Thoracic Surgery: Yes (TUMOR REMOVED FROM CHEST) Other Surgery: Yes (TRACH AND REVERSAL) Family History Family Myocardial Infarction: No Social History Alcohol Use: Yes (OCC WINE) Tobacco Use: No Substance Use: No Allergies-Medications (Allergen,Severity, Reaction): Coded Allergies: Contrast Media (Verified Allergy, Severe, Anaphylaxis, 03/04/17) Reported Meds & Prescriptions Reported Meds & Active Scripts Active Meclizine (Meclizine HCl) 25 Mg Tab 25 Mg PO TID PRN Lisinopril 10 Mg Tab 10 Mg PO DAILY Review of Systems Except as stated in HPI: all other systems reviewed are Neg Physical Exam Narrative GENERAL: 46 yo M, WNWD, NAD SKIN: Warm and dry. HEAD: Atraumatic. Normocephalic. EYES: Pupils equal and round. No scleral icterus. No injection or drainage. There is no significant nystagmus. ENT: No nasal bleeding or discharge. Mucous membranes pink and moist. The right tympanic membrane is intact and there is visualization of the bony landmarks. Trace fluid behind the tympanic membrane is consideredon the right side. The left side appears normal. There is no mastoid tenderness on either side. NECK: Trachea midline. No JVD. CARDIOVASCULAR: Regular rate and rhythm. RESPIRATORY: No accessory muscle use. Clear to auscultation. Breath sounds equal bilaterally. GASTROINTESTINAL: Soft. No focus of tenderness. MUSCULOSKELETAL: Extremities without clubbing, cyanosis, or edema. No obvious deformities. NEUROLOGICAL: Awake and alert x 3. Cranial nerves III through XII are normal. The tests of cerebellar function are normal. Normal speech memory mentation. PSYCHIATRIC: Appropriate mood and affect; insight and judgment normal. Data Data Last Documented VS Vital Signs Date Time Temp Pulse Resp B/P Pulse Ox O2 Delivery O2 Flow Rate FiO2 03/04/17 11:49 91 16 109/62 98 03/04/17 10:44 Nasal Cannula 2 03/04/17 09:30 97.7 VS reviewed Orders Electrocardiogram (03/04/17 09:42) Basic Metabolic Panel (Bmp) (03/04/17 09:42) Complete Blood Count With Diff (03/04/17 09:42) Troponin I (03/04/17 09:42) Ecg Monitoring (03/04/17 09:42) Iv Access Insert/Monitor (03/04/17 09:42) Oximetry (03/04/17 09:42) Meclizine (Antivert) (03/04/17 09:45) Ondansetron Inj (Zofran Inj) (03/04/17 09:45) Sodium Chloride 0.9% Flush (Ns Flush) (03/04/17 09:45) Sodium Chlor 0.9% 1000 Ml Inj (Ns 1000 M (03/04/17 09:42) Orthostatic Vital Signs (03/04/17 09:42) Sodium Chlor 0.9% 1000 Ml Inj (Ns 1000 M (03/04/17 09:45) Al-Mag Hy-Si 40-40-4 Mg/Ml Liq (Mag-Al P (03/04/17 09:45) Lidocaine 2% Viscous (Xylocaine 2% Visco (03/04/17 09:45) Lorazepam Inj (Ativan Inj) (03/04/17 11:00) Prochlorperazine Inj (Compazine Inj) (03/04/17 11:00) Labs Laboratory Tests Test 03/04/17 10:00 White Blood Count 10.3 TH/MM3 Red Blood Count 5.27 MIL/MM3 Hemoglobin 14.8 GM/DL Hematocrit 44.9 % Mean Corpuscular Volume 85.2 FL Mean Corpuscular Hemoglobin 28.0 PG Mean Corpuscular Hemoglobin 32.9 % Concent Red Cell Distribution Width 12.3 % Platelet Count 186 TH/MM3 Mean Platelet Volume 9.2 FL Neutrophils (%) (Auto) 47.4 % Lymphocytes (%) (Auto) 43.0 % Monocytes (%) (Auto) 7.0 % Eosinophils (%) (Auto) 2.2 % Basophils (%) (Auto) 0.4 % Neutrophils # (Auto) 5.0 TH/MM3 Lymphocytes # (Auto) 4.4 TH/MM3 Monocytes # (Auto) 0.7 TH/MM3 Eosinophils # (Auto) 0.2 TH/MM3 Basophils # (Auto) 0.0 TH/MM3 CBC Comment DIFF FINAL Differential Comment Sodium Level 142 MEQ/L Potassium Level 4.0 MEQ/L Chloride Level 106 MEQ/L Carbon Dioxide Level 26.8 MEQ/L Anion Gap 9 MEQ/L Blood Urea Nitrogen 14 MG/DL Creatinine 1.10 MG/DL Estimat Glomerular Filtration 71 ML/MIN Rate Random Glucose 128 MG/DL Calcium Level 8.8 MG/DL Troponin I LESS THAN 0.02 NG/ML MDM Medical Decision Making Medical Screen Exam Complete: Yes Emergency Medical Condition: Yes Differential Diagnosis Peripheral vertigo, central vertigo, dehydration, electron imbalance, arrhythmia Narrative Course CBC & BMP Diagram 03/04/17 10:00 Troponin less than 0.02 EKG: rate 77, sinus, normal axis intervals, no ischemic injury pattern, no excitation morphology Patient reassessed at 10:45 AM and reports feeling persistently nauseated and dizzy. He was observed sleeping up until that point. Compazine and 0.5 mg Ativan ordered. His vital signs have remained normal. His exam is benign including a thorough neurologic exam. A potential cause for central vertigo is considered very unlikely especially in light of his systemic type symptoms. Pt reassessed at 11:15AM and reports persistent dizziness worsened upon sitting upright. Will reassess in 45 minutes. Meclizine and Zofran called into pt's pharmacy per his request. Pt reassessed at 11:50AM and he was snoring audibly for approximately 20 minutes. Subjective improvement reported at 11:50. Pt ok for discharge home. Diagnosis Primary Impression: Dizziness Additional Impressions: Epigastric abdominal pain Diaphoresis Referrals: Eda Fishman MD 2 days Additional Instructions: You have a choice when it comes to health care, and we are glad that you chose [facility]. Hopefully, we have met your expectations on today's visit. You are welcome to return to [facility] at any time, as we are committed to meeting the health care needs of our community. Med/Other Pt SpecificInfo: Prescription(s) given Scripts Meclizine 25 Mg Tab25 Mg PO TID PRN (VERTIGO) #30 TAB Ref 0 Prov:Diego Mark MD 03/04/17 Disposition: DISCHARGE HOME Condition: Stable Diego Mark MD Mar 04, 2017 10:39
[2017-03-04 10:44] VITALS: BP 141/100; PULSE 77; RESP 16; O2SAT 100
[2017-03-04] MEDS ORDERED: LORazepam 2 MG/ML VIAL IV PUSH ONE (11:00)
[2017-03-04] MEDS ORDERED: MECL-62 PO ×2 (11:00→11:11)
[2017-03-04] MEDS ORDERED: PROCHLORPERAZINE INJ 10 MG/2 ML VIAL IV PUSH ONE (11:00)
[2017-03-04 11:49] VITALS: BP 109/62
--- NOTE | 2017-03-04 11:55 | EKG ---
Date Performed: 03/04/2017 Time Performed: 09:30:15 PTAGE: 46 years EKG: Sinus rhythm NORMAL ECG PREVIOUS TRACING : 09/21/2016 04.40 No change from previous tracing noted. DOCTOR: Dg Schmitt Interpretating Date/Time 03/04/2017 11:52:58
== END 2017-03-04 12:01 | disposition home or self-care (01) ==
LOC: PHED 09:22
DX: R42 Dizziness and giddiness (principal); R10.13 Epigastric pain; R61 Generalized hyperhidrosis
CPT/HCPCS: 80048; 84484; 85025; 93005; 96361; 96374; 96375; 99284; J0780; J2060; J2405; J7030